=== PATIENT | female | born 1975 | race African-American/Black ===

== ENCOUNTER 2021-10-02 12:23 | Day surgery (SDC) | payer OTHER ==
[2021-10-02] MEDS ORDERED: Depo-Medrol 40 MG/ML IM ONE (12:24)
[2021-10-02] MEDS ORDERED: BUPIVACAINE 0.5% VIAL IJ ONE (12:24)
[2021-10-02] MEDS ORDERED: Lactated Ringers 1,000 ML IV ONE (16:24)
[2021-10-02] MEDS ORDERED: DIPRIVAN 200 MG/20 ML IV ONE (16:37)
--- NOTE | 2021-10-02 20:01 | XRAY ---
Indication: Left knee injection. Intraoperative fluoroscopy provided for 11 seconds. Single digital spot image submitted for interpretation demonstrates needle tip projecting over the left femur intercondylar notch. Small amount of contrast injected for needle tip placement. Correlate with intraoperative findings/report.
--- NOTE | 2021-10-02 20:03 | XRAY ---
Indication: Right knee injection. Intraoperative fluoroscopy provided for 15 seconds. Single digital spot image submitted for interpretation demonstrates needle tip projecting over the right femur intercondylar notch. Small amount of contrast injected for needle tip placement. Correlate with intraoperative findings/report.
--- NOTE | 2021-10-03 09:41 | XRAY ---
15 seconds of fluoroscopy was used in surgery for a right knee intra-articular injection.
--- NOTE | 2021-10-03 09:42 | XRAY ---
11 seconds of fluoroscopy was used in surgery for a left knee intra-articular injection.
== END 2021-10-02 17:05 | disposition home or self-care (01) ==
LOC: SDC-PAIN 12:23
PROVIDERS: ATTEND Psychiatry & Neurology Pain Medicine
DX: M17.0 Bilateral primary osteoarthritis of knee (principal); I10 Essential (primary) hypertension; Z79.899 Other long term (current) drug therapy
CPT/HCPCS: 20610; 73560; 77002; 84703; J1030; J2704; Q9966

== ENCOUNTER 2021-10-23 10:19 | Day surgery (SDC) | payer OTHER ==
[2021-10-23] MEDS ORDERED: Depo-Medrol 40 MG/ML IM ONE (10:20)
[2021-10-23] MEDS ORDERED: Sodium Chloride 0.9(Preservative Free) 10 ML IJ ONE (10:20)
[2021-10-23] MEDS ORDERED: DIPRIVAN 200 MG/20 ML IV ONE ×2 (12:31→12:43)
[2021-10-23] MEDS ORDERED: Lactated Ringers 1,000 ML IV ONE (12:39)
--- NOTE | 2021-10-23 12:59 | XRAY ---
Indication: Left L4-S1 transforaminal STACEY Intraoperative fluoroscopy provided for 52 seconds. 4 digital spot image submitted for interpretation demonstrates posterior needle tips projecting over the expected left L4 and L5 nerve roots. Small amount of contrast injected for needle tip placement. Correlate with intraoperative findings/report.
--- NOTE | 2021-10-23 13:57 | XRAY ---
52 seconds fluoroscopy time in surgery for left L4-S1 transforaminal STACEY.
== END 2021-10-23 13:00 | disposition home or self-care (01) ==
LOC: SDC-PAIN 10:19
PROVIDERS: ATTEND Psychiatry & Neurology Pain Medicine
DX: M47.816 Spondylosis without myelopathy or radiculopathy, lumbar region (principal); I10 Essential (primary) hypertension; Z79.899 Other long term (current) drug therapy
CPT/HCPCS: 64483; 64484; 72100; 77003; 84703; J1030; J2704; Q9966

== ENCOUNTER 2021-11-27 13:24 | Day surgery (SDC) | payer OTHER ==
[2021-11-27] MEDS ORDERED: LIDOCAINE HCL 2% 100 MG/5 ML IJ ONE (13:25)
[2021-11-27] MEDS ORDERED: DIPRIVAN 200 MG/20 ML IV ONE ×2 (15:34→15:53)
--- NOTE | 2021-11-27 16:30 | XRAY ---
Indication: Bilateral L4-S1 MBB. Intraoperative fluoroscopy provided for 39 seconds. Single digital spot image submitted for interpretation demonstrates posterior needle tips projecting over the expected left and right L4-S1 nerve roots. Correlate with intraoperative findings/report.
[2021-11-27] MEDS ORDERED: Lactated Ringers 1,000 ML IV ONE (16:35)
--- NOTE | 2021-11-27 16:45 | XRAY ---
39 seconds of fluoroscopy was used in surgery for a bilateral L4-S1 MBB.
== END 2021-11-27 16:13 | disposition home or self-care (01) ==
LOC: SDC-PAIN 13:24
PROVIDERS: ATTEND Psychiatry & Neurology Pain Medicine
DX: M47.816 Spondylosis without myelopathy or radiculopathy, lumbar region (principal); Z79.899 Other long term (current) drug therapy
CPT/HCPCS: 64493; 64494; 72020; 77002; 84703; J2704

== ENCOUNTER 2022-01-01 13:55 | Day surgery (SDC) | payer OTHER ==
[2022-01-01] MEDS ORDERED: Marcaine Mpf 0.5% Vial 30 Ml IJ ONE (13:56)
[2022-01-01] MEDS ORDERED: DIPRIVAN 200 MG/20 ML IV ONE (15:21)
[2022-01-01] MEDS ORDERED: Lactated Ringers 1,000 ML IV ONE (16:00)
--- NOTE | 2022-01-02 18:31 | XRAY ---
17 seconds of fluoroscopy was used in surgery for a bilateral L4-S1 MBB.
--- NOTE | 2022-01-03 16:05 | XRAY ---
Indication: Bilateral L4-S1 MBB. Intraoperative fluoroscopy provided for 17 seconds. Single digital spot image submitted for interpretation demonstrates posterior needle tips projecting over the expected right and left L4-S1 nerve roots. Correlate with intraoperative findings/report.
== END 2022-01-01 15:47 | disposition home or self-care (01) ==
LOC: SDC-PAIN 13:55
PROVIDERS: ATTEND Psychiatry & Neurology Pain Medicine
DX: M47.816 Spondylosis without myelopathy or radiculopathy, lumbar region (principal); Z79.899 Other long term (current) drug therapy
CPT/HCPCS: 64493; 64494; 72020; 77002; 81025; J2704

== ENCOUNTER 2022-03-26 14:04 | Day surgery (SDC) | payer OTHER ==
[2022-03-26] MEDS ORDERED: LIDOCAINE HCL 1% 50 MG/5 ML VL PF IJ ONE (14:05)
[2022-03-26] MEDS ORDERED: SYNVISC 16 MG/2 ML SYRINGE IU ONE (14:05)
[2022-03-26] MEDS ORDERED: DIPRIVAN 200 MG/20 ML IV ONE (16:04)
[2022-03-26] MEDS ORDERED: Lactated Ringers 1,000 ML IV ONE (16:05)
--- NOTE | 2022-03-26 17:18 | XRAY ---
Indication: Left knee injection. Intraoperative fluoroscopy provided for 9 seconds. Single digital spot image submitted for interpretation demonstrates needle tip projecting over the left femur intercondylar notch. Small amount of contrast injected for needle tip placement. Correlate with intraoperative findings/report.
--- NOTE | 2022-03-26 17:19 | XRAY ---
Indication: Right knee injection. Intraoperative fluoroscopy provided for 18 seconds. Single digital spot image submitted for interpretation demonstrates needle tip projecting over the right femur intercondylar notch. Small amount of contrast injected for needle tip placement. Correlate with intraoperative findings/report.
--- NOTE | 2022-03-26 17:21 | XRAY ---
18 seconds of fluoroscopy was used in surgery for a right knee intra-articular injection.
--- NOTE | 2022-03-26 17:22 | XRAY ---
9 seconds of fluoroscopy was used in surgery for a left knee intra-articular injection.
== END 2022-03-26 16:27 | disposition home or self-care (01) ==
LOC: SDC-PAIN 14:04
PROVIDERS: ATTEND Psychiatry & Neurology Pain Medicine
DX: M17.0 Bilateral primary osteoarthritis of knee (principal); Z79.899 Other long term (current) drug therapy
CPT/HCPCS: 20610; 73560; 77002; 81025; J2001; J2704; J7325; Q9966

== ENCOUNTER 2022-04-02 16:23 | Day surgery (SDC) | payer BC, OTHER ==
[2022-04-02] MEDS ORDERED: XYLOCAINE-MPF 1% 5ML SDV IJ ONE (16:24)
[2022-04-02] MEDS ORDERED: SYNVISC 16 MG/2 ML SYRINGE IU ONE (16:24)
[2022-04-02] MEDS ORDERED: Lactated Ringers 1,000 ML IV ONE (16:35)
[2022-04-02] MEDS ORDERED: DIPRIVAN 200 MG/20 ML IV ONE ×2 (18:28→18:40)
--- NOTE | 2022-04-03 07:48 | XRAY ---
Indication: Right knee injection. Intraoperative fluoroscopy provided for 15 seconds. Single digital spot image submitted for interpretation demonstrates needle tip projecting right femur intercondylar notch. Small amount of contrast injected for needle tip placement. Correlate with intraoperative findings/report.
--- NOTE | 2022-04-03 07:48 | XRAY ---
Indication: Left knee injection. Intraoperative fluoroscopy provided for 12 seconds. Single digital spot image submitted for interpretation demonstrates needle tip projecting left femur intercondylar notch. Small amount of contrast injected for needle tip placement. Correlate with intraoperative findings/report.
--- NOTE | 2022-04-03 22:05 | XRAY ---
12 seconds of fluoroscopy was used in surgery for a left knee intra-articular injection.
--- NOTE | 2022-04-03 22:05 | XRAY ---
15 seconds of fluoroscopy was used in surgery for a right knee intra-articular injection.
== END 2022-04-02 19:05 | disposition home or self-care (01) ==
LOC: SDC-PAIN 16:23
PROVIDERS: ATTEND Psychiatry & Neurology Pain Medicine
DX: M17.0 Bilateral primary osteoarthritis of knee (principal); Z79.899 Other long term (current) drug therapy
CPT/HCPCS: 20610; 73560; 77002; 81025; J2704; J7325; Q9966

== ENCOUNTER 2022-04-09 16:10 | Day surgery (SDC) | payer OTHER ==
[2022-04-09] MEDS ORDERED: SYNVISC 16 MG/2 ML SYRINGE IU ONE (16:11)
[2022-04-09] MEDS ORDERED: Lactated Ringers 1,000 ML IV ONE (17:44)
[2022-04-09] MEDS ORDERED: DIPRIVAN 200 MG/20 ML IV ONE (18:17)
--- NOTE | 2022-04-10 10:58 | XRAY ---
15 seconds of fluoroscopy was used in surgery for a right knee intra-articular injection.
--- NOTE | 2022-04-10 10:58 | XRAY ---
9 seconds of fluoroscopy was used in surgery for a left knee intra-articular injection.
== END 2022-04-09 18:35 | disposition home or self-care (01) ==
LOC: SDC-PAIN 16:10
PROVIDERS: ATTEND Psychiatry & Neurology Pain Medicine
DX: M17.0 Bilateral primary osteoarthritis of knee (principal); Z79.899 Other long term (current) drug therapy
CPT/HCPCS: 20610; 73560; 77002; 81025; J2704; J7325; Q9966

== ENCOUNTER 2022-05-14 15:40 | Day surgery (SDC) | payer OTHER ==
[2022-05-14] MEDS ORDERED: Depo-Medrol 40 MG/ML IM ONE (15:41)
[2022-05-14] MEDS ORDERED: BUPIVACAINE 0.5% VIAL IJ ONE (15:41)
[2022-05-14] MEDS ORDERED: Xylocaine 1% Vial 30 ML PF IJ ONE (15:41)
[2022-05-14] MEDS ORDERED: Lactated Ringers 1,000 ML IV ONE (16:47)
[2022-05-14] MEDS ORDERED: DIPRIVAN 200 MG/20 ML IV ONE (16:49)
--- NOTE | 2022-05-14 19:26 | XRAY ---
Indication: Right L4-S1 RFA. Intraoperative fluoroscopy provided for 32 seconds. 3 digital spot images submitted for interpretation demonstrates posterior needle tips projecting over the expected right L4-S1 nerve roots. Correlate with intraoperative findings/report.
--- NOTE | 2022-05-15 09:42 | XRAY ---
32 seconds of fluoroscopy was used in surgery for a right L4-S1 RFA.
== END 2022-05-14 18:05 | disposition home or self-care (01) ==
LOC: SDC-PAIN 15:40
PROVIDERS: ATTEND Psychiatry & Neurology Pain Medicine
DX: M47.816 Spondylosis without myelopathy or radiculopathy, lumbar region (principal); Z79.899 Other long term (current) drug therapy
CPT/HCPCS: 64635; 64636; 72100; 77002; 81025; J1030; J2001; J2704

== ENCOUNTER 2022-05-21 15:39 | Day surgery (SDC) | payer OTHER ==
[2022-05-21] MEDS ORDERED: Depo-Medrol 40 MG/ML IM ONE (15:40)
[2022-05-21] MEDS ORDERED: Xylocaine 1% Vial 30 ML PF IJ ONE (15:40)
[2022-05-21] MEDS ORDERED: BUPIVACAINE 0.5% VIAL IJ ONE (15:40)
[2022-05-21] MEDS ORDERED: Lactated Ringers 1,000 ML IV ONE (16:40)
[2022-05-21] MEDS ORDERED: DIPRIVAN 200 MG/20 ML IV ONE ×2 (18:22→18:43)
--- NOTE | 2022-05-21 19:56 | XRAY ---
Indication: Left L4-S1 RFA. Intraoperative fluoroscopy provided for 30 seconds. 4 digital spot images submitted for interpretation demonstrates posterior needle tips projecting over the expected left L4-S1 nerve roots. Correlate with intraoperative findings/report.
--- NOTE | 2022-05-22 08:46 | XRAY ---
30 seconds of fluoroscopy was used in surgery for a left L4-S1 RFA.
== END 2022-05-21 19:10 | disposition home or self-care (01) ==
LOC: SDC-PAIN 15:39
PROVIDERS: ATTEND Psychiatry & Neurology Pain Medicine
DX: M47.816 Spondylosis without myelopathy or radiculopathy, lumbar region (principal); Z79.899 Other long term (current) drug therapy
CPT/HCPCS: 64635; 64636; 72100; 77002; 81025; J1030; J2001; J2704

== ENCOUNTER 2022-11-26 12:33 | Day surgery (SDC) | payer OTHER ==
[2022-11-26] MEDS ORDERED: BUPIVACAINE 0.5% VIAL IJ ONE (12:34)
[2022-11-26 14:04] LABS: HCG URINE TEST NEGATIVE (NEGATIVE)
[2022-11-26] MEDS ORDERED: DIPRIVAN 200 MG/20 ML IV ONE ×2 (15:12→15:30)
[2022-11-26] MEDS ORDERED: Lactated Ringers 1,000 ML IV ONE (15:25)
--- NOTE | 2022-11-26 16:42 | XRAY ---
Indication: Right knee genicular nerve. Intraoperative fluoroscopy provided for 23 seconds. 2 digital spot image submitted for interpretation demonstrates anterior needle tips projecting medial/lateral supracondylar and medial tibial plateau. Correlate with intraoperative findings/report.
--- NOTE | 2022-11-26 16:42 | XRAY ---
Indication: Left knee genicular nerve. Intraoperative fluoroscopy provided for 18 seconds. 2 digital spot image submitted for interpretation demonstrates anterior needle tips projecting medial/lateral supracondylar and medial tibial plateau. Correlate with intraoperative findings/report.
--- NOTE | 2022-11-26 16:44 | XRAY ---
18 seconds of fluoroscopy was used in surgery for a left knee genicular nerve block.
--- NOTE | 2022-11-26 16:44 | XRAY ---
23 seconds of fluoroscopy was used in surgery for a right knee genicular nerve block.
== END 2022-11-26 15:50 | disposition home or self-care (01) ==
LOC: SDC-PAIN 12:33
PROVIDERS: ATTEND Psychiatry & Neurology Pain Medicine
DX: M17.0 Bilateral primary osteoarthritis of knee (principal); Z79.899 Other long term (current) drug therapy
CPT/HCPCS: 64624; 73560; 77002; 81025; J2704